=== PATIENT | female | born 1990 | race Caucasian/White ===

== ENCOUNTER 2017-07-11 23:40 | Emergency (ER) | payer OTHER ==
--- NOTE | 2017-07-12 00:11 | ED Physician Documentation ---
General Adult - HISTORIAN Historian: patient, spouse - HPI Stated Complaint: R GREAT TOE LAC Chief Complaint: Laceration/Recheck/Suture Additional Information: dropped picture frame on rt gr toe approx 2300hrs prod 1.5 cm lac dorsum base rt gr toe-=denies other injury or pain when walks or moves toe Timing: still present Severity: mild - ROS CONST: no problems EYES/ENT: none CVS/RESP: none GI/: none MS/SKIN/LYMPH: none - PAST HX Past History: none Other History: none Immunizations: UTD (1 yr ago) Allergies/Adverse Reactions: Allergies Allergy/AdvReac Type Severity Reaction Status Date / Time No Known Allergies Allergy Verified 07/11/17 23:52 Home Medications: Ambulatory Orders Medication Instructions Recorded Norgestimate-Ethinyl Estradiol 1 each PO DAILY 07/11/17 [Trinessa Tablet] - SOCIAL HX Smoking History: non-smoker Alcohol Use: none Drug Use: none - FAMILY HX Family History: No - VITAL SIGNS Vital Signs: Vital Signs Temp Pulse Resp BP Pulse Ox 99.2 F 99 H 18 133/76 99 07/11/17 23:45 07/11/17 23:45 07/11/17 23:45 07/11/17 23:45 07/11/17 23:45 - REVIEWED ASSESSMENTS Nursing Assessment Reviewed: Yes Vitals Reviewed: Yes Procedures Wound Location: lower extremity Wound's Depth, Shape: superficial, linear, other (1.5 cm length) Wound Explored: no foreign body removed Betadine Prep?: Yes Wound Repaired With: Dermabond Sterile Dressing Applied?: Yes Splint Applied?: Yes Sling Applied?: Yes General Adult Physical Exam - PHYSICAL EXAM GENERAL APPEARANCE: mild distress EENT: eye inspection normal RESPIRATORY: no resp distress, chest non-tender, breath sounds normal CVS: reg rate & rhythm, heart sounds normal ABDOMEN: soft, non-tender SKIN: warm/dry, normal color. No: cyanosis, diaphoresis, jaundice, mottled EXTREMITIES: non-tender, normal range of motion, no edema NEURO: oriented X3, motor nml, sensation nml, mood/affect nml Discharge Clincal Impression: 1.5cm lac dorsum rt great toe Referrals: Primary Doctor,No [Primary Care Provider] - 2 Days Comments: used dermabond-keep dry for 4-5 days Condition: Good Disposition: 01 HOME, SELF-CARE Decision to Admit: NO Decision Time: 00:16
[2017-07-12 00:24] VITALS: BP 111/72
== END 2017-07-12 00:10 | disposition home or self-care (01) ==
LOC: ED 23:40
DX: S91.111A Laceration without foreign body of right great toe without damage to nail, initial encounter (principal); X58.XXXA Exposure to other specified factors, initial encounter; Y93.9 Activity, unspecified; Y92.9 Unspecified place or not applicable; Y99.9 Unspecified external cause status
CPT/HCPCS: 12001; 99283